=== PATIENT | female | born 1995 | race Caucasian/White ===

== ENCOUNTER 2020-10-19 20:48 | Emergency (ER) | payer MEDICAID, SELFPAY ==
[2020-10-19 21:05] VITALS: BP 108/68; PULSE 104; RESP 18; TEMP 37.3; O2SAT 97; BMI 40.2
--- NOTE | 2020-10-19 21:11 | ED_ITS ---
HPI - URI/Sore Throat General Chief Complaint: Upper Respiratory Symptoms Stated Complaint: Difficulty breathing Time Seen by Provider: 10/19/20 21:10 Source: patient Mode of arrival: ambulatory History of Present Illness HPI Narrative: This is a 25-year-old female who presents with nasal congestion, nonproductive/dry cough, fevers, dizziness, weakness for 2 days and states that she was diagnosed with COVID-19 3 days ago. Otherwise, she denies any significant past medical history. She states that the chest discomfort she feels is when she takes a deep breath and during her ?coughing fits?. Related Data Allergies Allergy/AdvReac Type Severity Reaction Status Date / Time No Known Allergies Allergy Unverified 04/28/20 18:50 CINAMMON Allergy Unknown Unknown Uncoded 10/19/20 21:05 MINT Allergy Unknown Unknown Uncoded 10/19/20 21:05 Review of Systems Review of Systems: Pertinent positives and negatives as stated in HPI and 10 point review of systems is otherwise negative. PMFSH Past Medical History Source: nursing notes reviewed Surgical History H/O bariatric surgery Social History Social History Advance Directives: No Advance Directives Information Provided: No Physical Exam Vital Signs: Vital Signs: Last Vital Signs Temp 99.2 F 10/19/20 21:05 Pulse 104 H 10/19/20 21:05 Resp 18 10/19/20 21:05 BP 108/68 10/19/20 21:05 Pulse Ox 97 10/19/20 21:05 Body Mass Index 40.2 VITAL SIGNS: Reviewed. GENERAL: Well developed, well nourished, in no acute distress. HEAD: Normocephalic/atraumatic, EYES: PERRLA, EOMI EARS: Ext canals without abnormality, TMs non-bulging and non-erythematous NOSE: Nares patent bilateral OROPHARYNX: no oral lesions noted, posterior pharynx clear and non-erythematous without noted tonsillar enlargement/erythema/exudates NECK: Supple, no adenopathy LUNGS: Normal breath sounds. No tachypnea, no increased work of breathing, No adventitious sounds or accessory muscle use. SpO2<97> CARDIOVASCULAR: Regular rate and rhythm without noted murmurs ABDOMEN: Soft, non-tender, non-distended with bowel sounds. NEUROLOGIC: Alert and oriented x 4. Course Course Course Narrative: This is a 25-year-old female with recent diagnosis of COVID-19 and presenting with sequela associated with this infection. There is no tachypnea, increased work of breathing, or hypoxia. The course of this viral infection was explained to the patient and she was discharged to home in stable condition. Discharge Plan Discharge Clinical Impression: COVID-19 virus infection Patient Disposition: Home, Self-Care Instructions: COVID-19 (Coronavirus Disease 2019) (ED) Additional Instructions: You must adhere to all [facility] guidelines and regulations regarding COVID-19 infection. 1. Tylenol 1000 mg, orally, every 6 hours as needed for body aches and temperatures greater than 100.4. Do not exceed 4000 mg within 24 hours. 2. Ibuprofen 400 mg, orally with milk or food, as needed for breakthrough body aches and temperatures greater than 100.4. increase fluid hydration with water. 3. Recommend [id number] cough suppressant and use as directed on the outside packaging. 4. Recommend using an cool mist vaporizer during the night at bedside for additional symptom control. 5. Follow-up with your primary care provider in the next 2-3 days. Do not hesitate to return to the emergency department for acute worsening of your symptoms. Interventions: ED Discharge Assessment Last Done: 10/19/20 22:05 Discharge Date/Time: 10/19/20 22:06
== END 2020-10-19 22:06 | disposition home or self-care (01) ==
PROVIDERS: Emergency Provider Student in an Organized Health Care Education/Training Program; PCP Nurse Practitioner Family
DX: U07.1 COVID-19 (principal); R06.02 Shortness of breath
CPT/HCPCS: 99283